=== PATIENT | female | born 1950 | race Caucasian/White ===

== ENCOUNTER 2017-02-27 03:52 | Inpatient (IN) | payer MEDICARE ==
[~2017-02-27] VITALS: Ht 157.5 cm; Wt 61.5 kg
[~2017-02-27 03:52] MED LIST: ASPI-515 PO; AZIT250T PO; EXCEDRIN PO; FISH OIL PO; FURO-93 PO; LEVO750T26 PO; METO25TA35 PO; MULT-516 PO; OMEP-110 PO; OXYC5TAB3 PO; POTA10TA5 PO; SIMV40TA3 PO; STOOL SOFTNER PO; TRAM50TA2 PO; TRAZ50TA18 PO; WARF2.5T PO; WARF5TAB PO; WARF5TAB7 PO-COUM
[2017-02-27] MEDS ORDERED: ONDANSETRON 2MG/ML, 2ML IVPush ONE (04:30)
[2017-02-27] MEDS ORDERED: SODIUM CHLORIDE 0.9% 1,000ML IVBOLUS ONE (04:30)
[2017-02-27] MEDS ORDERED: SODIUM CHLORIDE FLUSH 10ML SYR IVF ONE (04:30)
[2017-02-27] MEDS ORDERED: ONDANSETRON 2MG/ML, 2ML ONE (04:42)
[2017-02-27] MEDS ORDERED: MORPHINE SULFATE 4 MG/ML, 1ML ONE ×2 (04:42→07:55)
[2017-02-27] MEDS: MORPHINE SULFATE 4 MG/ML, 1ML IVPush PRN (04:45)
[2017-02-27 05:14] LABS: ASPARTATE AMINO TRANSFERASE 25 U/L (15-37); BLOOD UREA NITROGEN 18 mg/dL (7-18)
[2017-02-27] MEDS ORDERED: ONDANSETRON 2MG/ML, 2ML IV PRN (08:00)
[2017-02-27] MEDS ORDERED: MORPHINE SULFATE 4 MG/ML, 1ML IV PRN (08:00)
[2017-02-27] MEDS ORDERED: SODIUM CHLORIDE 0.9% 1,000 ML IV SCH (08:00)
[2017-02-27] MEDS ORDERED: IBUPROFEN 200 MG TABLET ONE (08:11)
[2017-02-27] MEDS ORDERED: POLYETHYLENE GLYCOL 17 GM PACKET PO PRN (10:00)
[2017-02-27] MEDS: DOCUSATE CALCIUM 240 MG CAPSULE PO SCH (10:00)
[2017-02-27] MEDS: DOXYCYCLINE 100 MG in DEXTROSE 5% 250 ML IV SCH ×2 (10:40→22:00)
[2017-02-27] MEDS: CEFTRIAXONE PMX 1GM/50ML 50 ML IV SCH (11:55)
[2017-02-27] MEDS: ENOXAPARIN 40 MG/0.4 ML SQ SCH (11:55)
[2017-02-27] MEDS ORDERED: ACETAMINOPHEN 325 MG TABLET ONE (12:04)
[2017-02-27] MEDS: ACETAMINOPHEN 325 MG TABLET PO PRN (12:05)
[2017-02-27] MEDS ORDERED: DIPHENHYDRAMINE 50 MG/ML, 1ML ONE ×2 (16:41→23:19)
[2017-02-27] MEDS: METOCLOPRAMIDE 5 MG/ML, 2ML IV PRN (16:45)
[2017-02-27] MEDS: DIPHENHYDRAMINE 50 MG/ML, 1ML IVPush PRN (16:45)
[2017-02-27] MEDS: SODIUM CHLORIDE FLUSH 10ML SYR IVF SCH ×2 (18:00→21:00)
[2017-02-28] MEDS: DIPHENHYDRAMINE 50 MG/ML, 1ML IVPush PRN ×2 (01:00→08:00)
[2017-02-28] MEDS: METOCLOPRAMIDE 5 MG/ML, 2ML IV PRN ×2 (01:00→08:00)
[2017-02-28] MEDS: ACETAMINOPHEN 325 MG TABLET PO PRN ×2 (05:40→21:27)
[2017-02-28] MEDS ORDERED: ACETAMINOPHEN 325 MG TABLET ONE (05:41)
[2017-02-28] MEDS ORDERED: DIPHENHYDRAMINE 50 MG/ML, 1ML ONE (07:56)
[2017-02-28 08:00] VITALS: BP 153/79
[2017-02-28] MEDS: DOCUSATE CALCIUM 240 MG CAPSULE PO SCH (09:00)
[2017-02-28] MEDS: SODIUM CHLORIDE FLUSH 10ML SYR IVF SCH ×2 (09:00→21:27)
[2017-02-28] MEDS: CEFTRIAXONE PMX 1GM/50ML 50 ML IV SCH ×2 (10:40→14:13)
[2017-02-28] MEDS: DOXYCYCLINE 100 MG in DEXTROSE 5% 250 ML IV SCH ×2 (12:00→22:00)
[2017-02-28] MEDS: ENOXAPARIN 40 MG/0.4 ML SQ SCH (14:13)
[2017-02-28 14:35] VITALS: BP 150/79
[2017-02-28 16:03] LABS: IS PT STATUS REG ER OR PRE ER? NO
[2017-02-28] MEDS: MORPHINE SULFATE 4 MG/ML, 1ML IVPush PRN (19:44)
[2017-02-28 20:30] VITALS: BP 138/80
[2017-02-28 20:41] VITALS: BP 138/80
[2017-03-01] MEDS: ACETAMINOPHEN 325 MG TABLET PO PRN (01:30)
[2017-03-01 02:21] VITALS: BP 146/88
[2017-03-01 07:55] VITALS: BP 170/89
[2017-03-01] MEDS: METOCLOPRAMIDE 5 MG/ML, 2ML IV PRN (08:22)
[2017-03-01] MEDS: SODIUM CHLORIDE FLUSH 10ML SYR IVF SCH (08:22)
[2017-03-01] MEDS: DIPHENHYDRAMINE 50 MG/ML, 1ML IVPush PRN (08:22)
[2017-03-01] MEDS: DOCUSATE CALCIUM 240 MG CAPSULE PO SCH (08:22)
[2017-03-01 09:27] LABS: BLOOD UREA NITROGEN 15 mg/dL (7-18)
[2017-03-01] MEDS: DOXYCYCLINE 100 MG in DEXTROSE 5% 250 ML IV SCH (12:07)
[2017-03-01 13:12] VITALS: BP 145/78
[2017-03-01] MEDS: CEFTRIAXONE PMX 1GM/50ML 50 ML IV SCH (14:38)
[2017-03-01] MEDS ORDERED: DOXY100C2 PO (15:02)
[2017-03-01] MEDS ORDERED: CEFD300C37 PO (15:02)
[2017-03-01] MEDS ORDERED: LACT1CAP24 PO (15:02)
[2017-03-03 09:24] LABS: BLOOD UREA NITROGEN 14 mg/dL (7-18)
[2017-03-03 09:25] LABS: IS PT STATUS REG ER OR PRE ER? NO
== END 2017-03-01 16:35 | disposition home or self-care (01) | DRG 193 ==
LOC: ED 04:37 → UNDOADMIN 07:58 → 4WST 07:58 → DCLOUNGE 03-01 16:15
PROVIDERS: ADMIT Internal Medicine; ATTEND Internal Medicine
DX: J18.9 Pneumonia, unspecified organism (principal); J96.01 Acute respiratory failure with hypoxia; E43 Unspecified severe protein-calorie malnutrition; J90 Pleural effusion, not elsewhere classified; J98.11 Atelectasis; E78.5 Hyperlipidemia, unspecified; Z87.891 Personal history of nicotine dependence; Z88.2 Allergy status to sulfonamides; Z95.2 Presence of prosthetic heart valve; Z87.11 Personal history of peptic ulcer disease; Z82.49 Family history of ischemic heart disease and other diseases of the circulatory system; Z80.49 Family history of malignant neoplasm of other genital organs; Z81.1 Family history of alcohol abuse and dependence; Z68.24 Body mass index [BMI] 24.0-24.9, adult
CPT/HCPCS: 36415; 71010; 71020; 71250; 80048; 80053; 84484; 85014; 85018; 85025; 85610; 85730; 93005; 96374; J0696; J1650; J2405; J7060; J1200; J2765; J7030

== ENCOUNTER → 2017-12-11 | Outpatient (CLI) | payer MEDICARE, OTHER ==
[~2017-12-11] MED LIST changes: +CEFD300C37 PO; +DOXY100C2 PO; +LACT1CAP24 PO; +WARF-36 PO-COUM; -WARF5TAB7 PO-COUM
== END | disposition home or self-care (01) ==
LOC: CFH 13:36 → EDSTATUS 14:00
PROVIDERS: ATTEND Internal Medicine Cardiovascular Disease
DX: I35.0 Nonrheumatic aortic (valve) stenosis (principal); E78.5 Hyperlipidemia, unspecified; Z95.3 Presence of xenogenic heart valve
CPT/HCPCS: 93306